=== PATIENT | female | born 1995 | race African-American/Black ===

== ENCOUNTER → 2021-12-10 | Outpatient (CLI) | payer OTHER ==
[~2021-12-10] VITALS: Ht 182.9 cm; Wt 108.9 kg
== END ==
LOC: EROP 13:07
DX: O98.519 Other viral diseases complicating pregnancy, unspecified trimester (principal); U07.1 COVID-19; Z23 Encounter for immunization; O99.519 Diseases of the respiratory system complicating pregnancy, unspecified trimester; J45.909 Unspecified asthma, uncomplicated; O99.891 Other specified diseases and conditions complicating pregnancy; R73.03 Prediabetes
CPT/HCPCS: M0247; Q0247

== ENCOUNTER 2022-01-13 18:50 | Outpatient (CLI) | payer OTHER | END 2022-01-13 20:28 | disposition other institution (70) | LOC: GENOP 18:50 | DX: O36.8130 Decreased fetal movements, third trimester, not applicable or unspecified (principal); O99.891 Other specified diseases and conditions complicating pregnancy; O99.513 Diseases of the respiratory system complicating pregnancy, third trimester; R00.0 Tachycardia, unspecified; J45.909 Unspecified asthma, uncomplicated; Z3A.28 28 weeks gestation of pregnancy | CPT/HCPCS: 59025 ==

== ENCOUNTER 2022-01-13 20:22 | Emergency (ER) | payer OTHER ==
[2022-01-13 21:23] LABS: BUN/CREATININE RATIO 12 (0-10)
[2022-01-13 21:27] LABS: HEMOGLOBIN 11.5 gm/dl (12.3-15.3); RED BLOOD COUNT 4.05 M/UL (4.00-5.10); WHITE BLOOD COUNT 8.2 K/UL (4.5-11.0)
== END 2022-01-13 22:12 | disposition home or self-care (01) ==
LOC: ER1 20:22
PROVIDERS: Preventive Medicine Occupational Medicine
DX: R00.2 Palpitations (principal); F17.200 Nicotine dependence, unspecified, uncomplicated
CPT/HCPCS: 80048; 82550; 82553; 84484; 85025; 93005; 99285

== ENCOUNTER 2022-03-04 18:37 | Outpatient (CLI) | payer OTHER | END 2022-03-04 21:26 | disposition home or self-care (01) | LOC: GENOP 18:37 | DX: O99.891 Other specified diseases and conditions complicating pregnancy (principal); R10.10 Upper abdominal pain, unspecified; Z3A.35 35 weeks gestation of pregnancy | CPT/HCPCS: 81001; G0463 ==

== ENCOUNTER → 2022-03-18 | Outpatient (CLI) | payer OTHER | LOC: US 10:00 | DX: O26.893 Other specified pregnancy related conditions, third trimester (principal); O99.891 Other specified diseases and conditions complicating pregnancy; N13.30 Unspecified hydronephrosis; Z3A.38 38 weeks gestation of pregnancy | CPT/HCPCS: 76705 ==

== ENCOUNTER 2022-03-25 16:38 | Inpatient (IN) | payer OTHER ==
[~2022-03-25] VITALS: Ht 182.9 cm; Wt 119.7 kg
[2022-03-25 17:10] LABS: HEMOGLOBIN 12.8 gm/dl (12.3-15.3); RED BLOOD COUNT 4.32 M/UL (4.00-5.10); WHITE BLOOD COUNT 8.7 K/UL (4.5-11.0)
[2022-03-27] MEDS ORDERED: HEMOCYTE324 MG PO (17:43)
[2022-03-27] MEDS ORDERED: COLACE100 MG PO (17:43)
[2022-03-27] MEDS ORDERED: IBUPROFEN800 MG PO (17:43)
[2022-03-28 06:07] LABS: HEMOGLOBIN 10.8 gm/dl (12.3-15.3)
== END 2022-03-29 13:15 | disposition home or self-care (01) | DRG 807 ==
LOC: GENOP 16:38 → OB 16:56 → CDU 03-26 21:03 → OB 03-26 21:04
PROVIDERS: Obstetrics & Gynecology; ADMIT Obstetrics & Gynecology
PROC: 10E0XZZ Delivery of Products of Conception, External Approach (ICD-10-PCS; principal; 2022-03-27)
PROC: 10907ZC Drainage of Amniotic Fluid, Therapeutic from Products of Conception, Via Natural or Artificial Opening (ICD-10-PCS; 2022-03-27)
PROC: 3E033VJ Introduction of Other Hormone into Peripheral Vein, Percutaneous Approach (ICD-10-PCS; 2022-03-27)
PROC: 4A1H7CZ Monitoring of Products of Conception, Cardiac Rate, Via Natural or Artificial Opening (ICD-10-PCS; 2022-03-27)
PROC: 10H073Z Insertion of Monitoring Electrode into Products of Conception, Via Natural or Artificial Opening (ICD-10-PCS; 2022-03-27)
PROC: 10H07YZ Insertion of Other Device into Products of Conception, Via Natural or Artificial Opening (ICD-10-PCS; 2022-03-27)
PROC: 3E0234Z Introduction of Serum, Toxoid and Vaccine into Muscle, Percutaneous Approach (ICD-10-PCS; 2022-03-27)
DX: O99.52 Diseases of the respiratory system complicating childbirth (principal); Z37.0 Single live birth; Z96.659 Presence of unspecified artificial knee joint; Z20.822 Contact with and (suspected) exposure to COVID-19; J45.909 Unspecified asthma, uncomplicated; Z3A.38 38 weeks gestation of pregnancy; Z23 Encounter for immunization
CPT/HCPCS: 36415; 81001; 85014; 85018; 85025; 85461; 86850; 86900; 86901; 90471; 90715; J0595; J2590; J2790; J7120; J7121